=== PATIENT | male | born 1935 | race Two or more races ===

== ENCOUNTER 2022-10-29 22:20 | Inpatient (IN) | payer OTHER, MEDICAID ==
[~2022-10-29] VITALS: Ht 172.7 cm; Wt 80.6 kg
[~2022-10-29 22:20] MED LIST: ATEN50TA PO; SIMV-8 PO
[2022-10-29 23:58] LABS: Basophils # (auto) 0 10 ^3/uL (0-0.2); Basophils % (auto) 0.4 % (0.0-2.0); Eosinophils # (auto) 0 10 ^3/uL (0-0.8); Eosinophils % (auto) 0.3 % (0.0-7.0); Hematocrit 42.3 % (41.0-53.0); Lymphocytes # (auto) 1.7 10 ^3/uL (0.4-5.4); Lymphocytes % (auto) 23.8 % (10.0-50.0); Mean Corpuscular Hemoglobin 32.2 pg (28.0-32.0); Mean Corpuscular Hgb Conc. 33.1 g/dL (32.0-36.0); Mean Corpuscular Volume 97.2 fL (80.0-100.0); Monocytes # (auto) 0.5 10 ^3/uL (0-1.3); Monocytes % (auto) 6.2 % (0.0-12.0); Neutrophils # (auto) 5.1 10 ^3/uL (1.6-8.6); Neutrophils % (auto) 69.3 % (37.0-80.0); Red Blood Cells 4.35 10^6/uL (4.5-5.90); Red Cell Distribution Width 13.5 % (11.8-14.3); White Blood Cell 7.3 10^3/uL (4.4-10.8)
[2022-10-30 00:11] LABS: Albumin 3.4 g/dL (3.4-5.0); Calcium 8.7 mg/dL (8.5-10.1); Magnesium 2.4 mg/dL (1.6-2.6); Potassium 4.2 mmol/L (3.5-5.1)
[2022-10-30 00:14] LABS: Bilirubin, Total 0.4 mg/dL (0.2-1.0); Total Protein 6.8 g/dL (6.4-8.2)
[2022-10-30 00:15] LABS: INR 1.04 (0.9-1.15); Partial Thromboplastin Time 28.6 sec (24.6-33.4)
[2022-10-30 05:09] LABS: Urine Bacteria NONE SEEN /hpf (None Seen); Urine Blood Negative /uL (Negative); Urine Hyaline Cast FEW /lpf (0 - 2); Urine Mucus FEW (None Seen); Urine Specific Gravity 1.022 (1.001-1.035); Urine WBC 4 /hpf (0 - 3)
[2022-10-30] MEDS ORDERED: NITROGLYCERIN 0.4 MG SL TAB SL PRN (08:45)
[2022-10-30] MEDS ORDERED: MORPHINE SULFATE INJ 2 MG/ml SYRG IV PRN (08:45)
[2022-10-30] MEDS ORDERED: ACETAMINOPHEN 325 MG TAB PO PRN (08:45)
[2022-10-30] MEDS: SODIUM CHLORIDE 0.9% 1,000 ML IV SCH (13:46)
[2022-10-30] MEDS ORDERED: DONEPEZIL HYDROCHLORIDE 5 MG TAB PO SCH (22:00)
[2022-10-30] MEDS: MEMANTINE HCL 5 MG TAB PO SCH (22:56)
[2022-10-30 23:33] LABS: Folate (Folic Acid) > 24.00 ng/mL (5.38-24)
[2022-10-31] VITALS: BP 120/64
[2022-10-31] MEDS: SODIUM CHLORIDE 0.9% 1,000 ML IV SCH (01:25)
[2022-10-31] MEDS ORDERED: SIMV-13 PO (02:32)
[2022-10-31] MEDS ORDERED: ASPI-318 PO (02:32)
[2022-10-31] MEDS ORDERED: DONE1TAB88 PO (02:32)
[2022-10-31] MEDS ORDERED: TAMS1CAP25 PO (02:32)
[2022-10-31] MEDS ORDERED: LOS25T PO (02:32)
[2022-10-31] MEDS ORDERED: SERT25TA14 PO (02:32)
[2022-10-31] MEDS ORDERED: GABA300C10 PO (02:32)
[2022-10-31] MEDS ORDERED: MEMA14CA PO (02:32)
[2022-10-31] MEDS ORDERED: MAGN400T40 PO (02:33)
[2022-10-31 05:00] VITALS: BP 114/53
[2022-10-31 10:40] VITALS: BP 116/56
[2022-10-31] MEDS: MEMANTINE HCL 5 MG TAB PO SCH (14:37)
[2022-10-31 15:00] VITALS: BP 103/59
== END 2022-10-31 18:01 | disposition home health service (06) | DRG 312 ==
LOC: ER 22:20 → EDBD 22:20 → TELE 10-30 09:03 → TELE-WESTW 10-30 21:42
PROVIDERS: ADMIT Internal Medicine; ATTEND Internal Medicine
DX: R55 Syncope and collapse (principal); E78.5 Hyperlipidemia, unspecified; I10 Essential (primary) hypertension; G30.9 Alzheimer's disease, unspecified; F02.80 Dementia in other diseases classified elsewhere, unspecified severity, without behavioral disturbance, psychotic disturbance, mood disturbance, and anxiety; W18.39XA Other fall on same level, initial encounter; I48.91 Unspecified atrial fibrillation; Z20.822 Contact with and (suspected) exposure to COVID-19; Z79.899 Other long term (current) drug therapy; Z87.442 Personal history of urinary calculi; Y93.89 Activity, other specified; Y92.098 Other place in other non-institutional residence as the place of occurrence of the external cause; Y99.8 Other external cause status
CPT/HCPCS: 36415; 70551; 80053; 81001; 82607; 82746; 83735; 83880; 84443; 84484; 85025; 85610; 85730; 87426; 93005; 93306; 97110; 97116; 97163; 97530; G0378